=== PATIENT | male | born 1960 | race Caucasian/White ===

== ENCOUNTER 2024-03-28 21:19 | Inpatient (IN) | payer OTHER ==
[~2024-03-28] VITALS: Ht 177.8 cm; Wt 62.6 kg
[2024-03-28 21:50] LABS: BASOPHILS % (AUTO) 0.7 % (0.0-2.0); EOSINOPHILS # (AUTO) 0.1 K/uL (0.0-0.7); EOSINOPHILS % (AUTO) 1.1 % (0.0-6.0); HEMATOCRIT 35 % (39-51); HEMOGLOBIN 11.6 g/dL (13.5-17.5); LYMPHOCYTES % (AUTO) 19.6 % (20.0-44.0); MEAN CORPUSCULAR HEMOGLOBIN 28 PG (26.0-33.0); MEAN CORPUSCULAR HGB CONC 33 g/dl (31.0-36.0); MEAN CORPUSCULAR VOLUME 85 fL (80-96); MONOCYTES # (AUTO) 0.4 K/uL (0.1-1.30); NEUTROPHILS # (AUTO) 3.5 K/uL (1.8-8.9); NEUTROPHILS % (AUTO) 70.6 % (43.0-81.0); PLATELET COUNT (AUTO) 154 K/uL (150-450); RED CELL DISTRIBUTION WIDTH 15.5 % (11.5-15.0)
[2024-03-28] MEDS ORDERED: METOPROLOL TARTRATE 25 MG TABLET ONE (21:50)
[2024-03-28] MEDS ORDERED: METOPROLOL TARTRATE INJ 5 MG/5 ML AMPUL ONE ×2 (21:50→22:19)
[2024-03-28] MEDS: METOPROLOL TARTRATE INJ 5 MG/5 ML AMPUL IV ONE ×2 (21:54→22:24)
[2024-03-28 21:59] LABS: CALCIUM, SERUM 8.5 mg/dL (8.5-10.1); CARBON DIOXIDE 29 mmol/L (21-32); CHLORIDE 103 mmol/L (98-107); GLUCOSE 123 mg/dL (74-106); POTASSIUM 3.9 mmol/L (3.5-5.1); SODIUM SERUM 136 mmol/L (136-145); UREA NITROGEN, BLOOD 13 mg/dL (7-18)
[2024-03-28] MEDS: METOPROLOL TARTRATE 25 MG TABLET PO ONE (21:59)
[2024-03-28 22:12] LABS: ALANINE AMINOTRANSFERASE 15 U/L (12-78); ALBUMIN 3.7 g/dL (3.4-5.0); ALKALINE PHOSPHATASE 157 U/L (46-116); ASPARTATE AMINOTRANSFERASE 19 U/L (15-37); BILIRUBIN,DIRECT 0.2 mg/dL (0.0-0.2); BILIRUBIN,TOTAL 0.6 mg/dL (0.2-1.0); NT-PRO BNP 1167 pg/mL (0-125); TOTAL PROTEIN, SERUM 7.2 g/dL (6.4-8.2)
[2024-03-28] MEDS ORDERED: AMIODARONE 150 MG/3 ML VIAL IV ONE (23:29)
[2024-03-28] MEDS: AMIODARONE 150 MG/3 ML VIAL IV ONE ×2 (23:30→23:55)
[2024-03-29] MEDS ORDERED: APIX5TAB PO (00:34)
[2024-03-29] MEDS ORDERED: BICT1TAB PO (00:34)
[2024-03-29] MEDS ORDERED: DIGO125T PO (00:35)
[2024-03-29] MEDS ORDERED: TORS5TAB11 PO (00:36)
[2024-03-29] MEDS ORDERED: URSO250T3 PO (00:36)
[2024-03-29] MEDS ORDERED: DOXE150C PO (00:37)
[2024-03-29] MEDS ORDERED: ROSU10TA2 PO (00:38)
[2024-03-29] MEDS ORDERED: OMEP20CA15 PO (00:38)
[2024-03-29] MEDS ORDERED: HYDROCODONE/APAP 10/325MG TABLET PO PRN (01:30)
[2024-03-29] MEDS ORDERED: ONDANSETRON HCL/PF 4 MG/2 ML VIAL IV PRN (01:30)
[2024-03-29] MEDS ORDERED: ACETAMINOPHEN 325 MG TABLET PO PRN (01:30)
[2024-03-29] MEDS ORDERED: HYDROCODONE/APAP 5/325MG TABLET PO PRN (01:30)
[2024-03-29 04:00] VITALS: BP 99/83; TEMP 97.7; O2SAT 98
[2024-03-29 07:12] LABS: BASOPHILS % (AUTO) 0.9 % (0.0-2.0); EOSINOPHILS # (AUTO) 0.1 K/uL (0.0-0.7); EOSINOPHILS % (AUTO) 1.3 % (0.0-6.0); HEMATOCRIT 36 % (39-51); HEMOGLOBIN 11.9 g/dL (13.5-17.5); LYMPHOCYTES # (AUTO) 1.2 K/uL (0.8-4.8); LYMPHOCYTES % (AUTO) 21.5 % (20.0-44.0); MEAN CORPUSCULAR HEMOGLOBIN 28 PG (26.0-33.0); MEAN CORPUSCULAR HGB CONC 33 g/dl (31.0-36.0); MEAN CORPUSCULAR VOLUME 85 fL (80-96); MONOCYTES # (AUTO) 0.7 K/uL (0.1-1.30); MONOCYTES % (AUTO) 12.6 % (2.0-12.0); NEUTROPHILS # (AUTO) 3.5 K/uL (1.8-8.9); NEUTROPHILS % (AUTO) 63.7 % (43.0-81.0); PLATELET COUNT (AUTO) 142 K/uL (150-450); RED CELL DISTRIBUTION WIDTH 15.7 % (11.5-15.0); WHITE BLOOD COUNT (AUTO) 5.5 K/uL (4.3-11.0)
[2024-03-29 07:18] LABS: CALCIUM, SERUM 8.1 mg/dL (8.5-10.1); CREATININE 0.9 mg/dL (0.6-1.3); POTASSIUM 3.9 mmol/L (3.5-5.1)
[2024-03-29 08:00] VITALS: BP 118/90; TEMP 98.4; O2SAT 98
[2024-03-29] MEDS: METOPROLOL TARTRATE 25 MG TABLET PO SCH ×2 (08:36→17:24)
[2024-03-29] MEDS: APIXABAN 5 MG TABLET PO SCH (08:38)
[2024-03-29] MEDS: TORSEMIDE 20 MG TABLET PO SCH (08:53)
[2024-03-29] MEDS ORDERED: METOPROLOL SUCCINATE 50 MG TAB.SR.24H PO SCH (09:00)
[2024-03-29 12:00] VITALS: BP 108/89; TEMP 97.9; O2SAT 97
[2024-03-29] MEDS: DIGOXIN 0.125 MG TABLET PO SCH (13:10)
[2024-03-29 16:00] VITALS: BP 108/87; TEMP 98.6; O2SAT 98
[2024-03-29] MEDS: MIDODRINE HCL (5MG) 5 MG TABLET PO SCH (17:07)
[2024-03-29 20:00] VITALS: BP 95/83; TEMP 98.6; O2SAT 98
[2024-03-29] MEDS ORDERED: AMIODARONE HCL 200 MG TABLET PO SCH (21:00)
[2024-03-29] MEDS: ATORVASTATIN 10 MG TABLET PO SCH (21:14)
[2024-03-30] VITALS: BP 102/87; TEMP 98.1; O2SAT 98
[2024-03-30 04:00] VITALS: BP 102/81; TEMP 98.3; O2SAT 99
[2024-03-30 08:00] VITALS: BP 107/95; TEMP 97.4; O2SAT 99
[2024-03-30] MEDS: PANTOPRAZOLE 40 MG TABLET.DR PO SCH (08:16)
[2024-03-30] MEDS ORDERED: DOXE75CA4 PO (08:54)
[2024-03-30] MEDS ORDERED: URSO250T12 PO (08:54)
[2024-03-30 09:12] LABS: BASOPHILS # (AUTO) 0.1 K/uL (0.0-0.2); BASOPHILS % (AUTO) 1.1 % (0.0-2.0); EOSINOPHILS # (AUTO) 0.1 K/uL (0.0-0.7); EOSINOPHILS % (AUTO) 1.5 % (0.0-6.0); HEMATOCRIT 41 % (39-51); HEMOGLOBIN 13.2 g/dL (13.5-17.5); LYMPHOCYTES # (AUTO) 1.8 K/uL (0.8-4.8); LYMPHOCYTES % (AUTO) 29.4 % (20.0-44.0); MEAN CORPUSCULAR HEMOGLOBIN 27 PG (26.0-33.0); MEAN CORPUSCULAR HGB CONC 32 g/dl (31.0-36.0); MEAN CORPUSCULAR VOLUME 85 fL (80-96); MONOCYTES # (AUTO) 0.7 K/uL (0.1-1.30); MONOCYTES % (AUTO) 11.3 % (2.0-12.0); NEUTROPHILS # (AUTO) 3.5 K/uL (1.8-8.9); NEUTROPHILS % (AUTO) 56.7 % (43.0-81.0); PLATELET COUNT (AUTO) 200 K/uL (150-450); RED BLOOD CELL COUNT(AUTO) 4.84 MIL/uL (4.5-6.0); RED CELL DISTRIBUTION WIDTH 16.1 % (11.5-15.0); WHITE BLOOD COUNT (AUTO) 6.2 K/uL (4.3-11.0)
[2024-03-30] MEDS: BIKTARVY PO SCH (09:19)
[2024-03-30 09:34] LABS: CREATININE 0.8 mg/dL (0.6-1.3); MAGNESIUM 2.3 mg/dL (1.8-2.4); POTASSIUM 3.9 mmol/L (3.5-5.1)
[2024-03-30] MEDS: METOPROLOL TARTRATE 25 MG TABLET PO SCH (11:05)
[2024-03-30 12:17] VITALS: BP 152/96; TEMP 97.9; O2SAT 99
[2024-03-30 16:00] VITALS: BP 95/68; TEMP 97.9; O2SAT 99
[2024-03-30] MEDS: [UNRECOGNIZED DRUG - OTHER] PO SCH (17:10)
[2024-03-30] MEDS: METOPROLOL TARTRATE 25 MG TABLET PO ONE (18:28)
[2024-03-30 20:00] VITALS: BP 93/77; TEMP 99; O2SAT 96
[2024-03-30] MEDS ORDERED: HOME MED MISCELLANEOUS PO SCH (21:00)
[2024-03-30] MEDS: [UNRECOGNIZED DRUG - OTHER] PO SCH (21:19)
[2024-03-31] VITALS (22 sets, daily range): BP systolic 71–106; BP diastolic 57–84; TEMP 97.3–98.5; O2SAT 96–99
[2024-03-31] MEDS: URSODIOL 250 MG PO SCH (08:16)
[2024-03-31] MEDS: IV NS 0.9% 250 ML IV ONE (10:58)
[2024-03-31] MEDS: METOPROLOL TARTRATE 25 MG TABLET PO SCH (17:00)
[2024-04-01] VITALS: BP 95/69; TEMP 98; O2SAT 98
[2024-04-01 04:00] VITALS: BP 100/78; TEMP 98.3; O2SAT 98
[2024-04-01] MEDS ORDERED: METO25TA6 PO (07:46)
[2024-04-01 08:00] VITALS: BP 100/77; TEMP 97.9; O2SAT 98
[2024-04-01 08:13] VITALS: BP 100/77
== END 2024-04-01 12:18 | disposition home or self-care (01) | DRG 309 ==
LOC: ER 21:21 → TELE1 03-29 00:27 → TELE-TD 03-29 00:51 → TELE1 03-29 01:17 → TELE-TD 03-29 03:05 → ICU 03-31 09:11 → TELE1 03-31 15:54 → TELE-TD 03-31 20:23
PROVIDERS: ADMIT Internal Medicine; ATTEND Internal Medicine
PROC: 5A2204Z Restoration of Cardiac Rhythm, Single (ICD-10-PCS; principal; 2024-03-31)
DX: I48.92 Unspecified atrial flutter (principal); I50.42 Chronic combined systolic (congestive) and diastolic (congestive) heart failure; I48.19 Other persistent atrial fibrillation; K58.9 Irritable bowel syndrome, unspecified; K21.9 Gastro-esophageal reflux disease without esophagitis; E78.5 Hyperlipidemia, unspecified; Z79.01 Long term (current) use of anticoagulants; Z88.0 Allergy status to penicillin; I95.9 Hypotension, unspecified; Z20.822 Contact with and (suspected) exposure to COVID-19
CPT/HCPCS: 36415; 71045-TC; 80048-TC; 80076-TC; 80162-TC; 83735-TC; 83880; 84484-TC; 85025-TC; 93307-TC; 93312-TC; G0378; J0282; J2704; J3490; J7030; J7040; J7060